=== PATIENT | male | born 1960 | race Two or more races ===

== ENCOUNTER 2018-10-26 15:33 | Emergency (ER) | payer MEDICAID ==
[~2018-10-26] VITALS: Ht 182.9 cm; Wt 111.6 kg
[2018-10-26 15:42] VITALS: BP_SYST 147
--- NOTE | 2018-10-26 15:51 | NUR ---
Patient to ER bed 8 to gown for evaluation. Side rails up.
--- NOTE | 2018-10-26 15:52 | NUR ---
Pt AAOx4 ambulated into ED c/o pain to L upper arm x 1 month which increases when raising arm above head. No deformities/discoloration noted to site. No other injuries/complaints per pt/noted. Will continue to monitor.
--- NOTE | 2018-10-26 15:54 | NUR ---
ER Dr. Villasenor at bedside examining patient.
--- NOTE | 2018-10-26 15:55 | NUR ---
Marianne chaidez in ED - 10/26/18 at 1558 by [email or web address] NARA Villasenor at bedside examining patient.
[2018-10-26] MEDS ORDERED: DEXAMETHASONE SOD PHOSPHATE 10 MG/ML VIAL IVP ONE (16:00)
[2018-10-26] MEDS ORDERED: KETOROLAC TROMETHAMINE 30 MG VIAL IVP ONE (16:00)
--- NOTE | 2018-10-26 16:13 | NUR ---
Medication administered. Pt tolerated well. No adverse reactions noted.
[2018-10-26 16:29] LABS: BASOPHILS % (AUTO) 0.3 % (0.0-2.0); EOSINOPHILS # (AUTO) 0.2 K/uL (0.0-0.4); EOSINOPHILS % (AUTO) 3.2 % (0.0-4.0); HEMATOCRIT 44.8 % (36-54); HEMOGLOBIN 15.2 g/dL (14.0-18.0); LYMPHOCYTES # (AUTO) 2.7 K/uL (1.0-5.5); LYMPHOCYTES % (AUTO) 35.7 % (20.5-51.5); MEAN CORPUSCULAR HEMOGLOBIN 31 pg (27-31); MEAN CORPUSCULAR HGB CONC 34 % (32-36); MEAN CORPUSCULAR VOLUME 91 fL (79.0-98.0); MONOCYTES # (AUTO) 0.8 K/uL (0.0-1.0); MONOCYTES % (AUTO) 10.1 % (1.7-9.3); NEUTROPHILS # (AUTO) 3.8 K/uL (1.8-7.7); NEUTROPHILS % (AUTO) 50.7 % (40.0-70.0); PLATELET COUNT (AUTO) 148 K/uL (130-430); RED BLOOD CELL COUNT(AUTO) 4.93 MIL/uL (4.2-6.2); RED CELL DISTRIBUTION WIDTH 13.8 % (9.0-15.0); WHITE BLOOD COUNT (AUTO) 7.6 K/uL (4.8-10.8)
[2018-10-26 16:49] LABS: CALCIUM 9.5 mg/dL (8.4-11.0); CREATININE 0.98 mg/dL (0.55-1.30); POTASSIUM 3.8 mmol/L (3.5-5.1)
[2018-10-26 16:54] LABS: ALBUMIN 3.3 g/dL (3.4-4.8); TOTAL BILIRUBIN 0.4 mg/dL (0.0-1.0)
--- NOTE | 2018-10-26 17:15 | NUR ---
PT reports relief of pain and can lift arm with mild discomfort. Room lights turned off, blanket provided, TV turned on per pt request.
--- NOTE | 2018-10-26 17:22 | NUR ---
Patient given written and verbal discharge instructions and verbalizes understanding. ER MD Villasenor discussed with patient the results and treatment provided. Patient in stable condition. ID arm band removed. IV catheter removed intact and dressing applied, no active bleeding. Rx of Tramadol, Benadryl given. Patient educated on pain management and to follow up with PMD. Pain Scale 0. Opportunity for questions provided and answered. Medication side effect fact sheet provided.
== END 2018-10-26 17:23 | disposition home or self-care (01) ==
LOC: SED 15:33 → MERGE 15:33 → SED 17:23
DX: M75.52 Bursitis of left shoulder (principal); M79.602 Pain in left arm; E11.9 Type 2 diabetes mellitus without complications
CPT/HCPCS: 36415; 73030; 80053; 85025; 86431; 96374; 96375; 99284; J1100; J1885

== ENCOUNTER 2020-01-15 09:14 | Emergency (ER) | payer MEDICAID ==
[~2020-01-15] VITALS: Ht 177.8 cm; Wt 108.9 kg
--- NOTE | 2020-01-15 09:40 | NUR ---
Patient to ER bed 4 to gown for evaluation. Side rails up. Report given to PASHA Talley.
[2020-01-15 09:42] VITALS: BP_SYST 142
--- NOTE | 2020-01-15 09:45 | NUR ---
ER Dr. Thapa at bedside examining patient.
[2020-01-15] MEDS ORDERED: KETOROLAC TROMETHAMINE 60 MG/2 ML VIAL IM ONE (10:00)
[2020-01-15 13:46] VITALS: BP_SYST 142
== END 2020-01-15 13:46 | disposition home or self-care (01) ==
LOC: SED 09:14
DX: M72.2 Plantar fascial fibromatosis (principal)
CPT/HCPCS: 73630; 96372; 99283; J1885

== ENCOUNTER 2020-03-11 11:10 | Emergency (ER) | payer MEDICAID ==
[~2020-03-11] VITALS: Ht 177.8 cm; Wt 113.4 kg
[2020-03-11 11:10] VITALS: BP_SYST 134
[2020-03-11] MEDS ORDERED: MORPHINE 2 MG/ML INJ. SYRINGE IM ONE ×2 (11:30→12:15)
[2020-03-11] MEDS ORDERED: BACITRACIN 1 GM OINT TP ONE (12:15)
[2020-03-11 12:45] VITALS: BP_SYST 124
== END 2020-03-11 12:45 | disposition home or self-care (01) ==
LOC: SED 11:10
DX: S93.401A Sprain of unspecified ligament of right ankle, initial encounter (principal); I10 Essential (primary) hypertension; E11.9 Type 2 diabetes mellitus without complications; W01.0XXA Fall on same level from slipping, tripping and stumbling without subsequent striking against object, initial encounter; Y93.89 Activity, other specified; Y92.89 Other specified places as the place of occurrence of the external cause; Y99.8 Other external cause status
CPT/HCPCS: 10060; 73590; 73610; 96372; 99284; J2270